=== PATIENT | female | born 1935 | race Caucasian/White ===

== ENCOUNTER 2024-01-28 13:37 | Inpatient (IN) | payer OTHER ==
[~2024-01-28] VITALS: Ht 165.1 cm; Wt 52.2 kg
[2024-01-28 14:01] VITALS: BP 166/87; PULSE 70; RESP 15; TEMP 97.3; O2SAT 96
[2024-01-28 14:13] LABS: BASOPHILS % (AUTO) 0.4 % (0.0-2.0); EOSINOPHILS # (AUTO) 0.2 K/uL (0-0.4); EOSINOPHILS % (AUTO) 3.2 % (0.0-4.0); HEMATOCRIT 34.7 % (36-48); HEMOGLOBIN 10.8 g/dL (12.0-16.0); LYMPHOCYTES # (AUTO) 1.6 K/uL (2.5-16.5); LYMPHOCYTES % (AUTO) 32.1 % (20.5-51.1); MEAN CORPUSCULAR HEMOGLOBIN 23 pg (27-31); MEAN CORPUSCULAR HGB CONC 31 g/dL (33-37); MEAN CORPUSCULAR VOLUME 72.2 fL (80-94); MONOCYTES # (AUTO) 0.3 K/uL (0.8-1.0); MONOCYTES % (AUTO) 6.7 % (1.7-9.3); NEUTROPHILS # (AUTO) 2.8 K/uL (1.8-7.7); NEUTROPHILS % (AUTO) 57.6 % (42.2-75.2); PLATELET COUNT (AUTO) 360 K/uL (140-450); WHITE BLOOD COUNT (AUTO) 4.9 K/uL (4.8-10.8)
[2024-01-28 14:49] LABS: LACTIC ACID 1.5 mmol/L (0.4-2.0)
[2024-01-28 14:53] LABS: ALANINE AMINOTRANSFERASE 34 U/L (12-78); ALBUMIN 2.4 g/dL (3.4-5.0); ALKALINE PHOSPHATASE 425 U/L (50-136); ASPARTATE AMINOTRANSFERASE 46 U/L (15-37); BILIRUBIN,DIRECT 0.6 mg/dL (0.0-0.3); CREATINE KINASE, TOTAL 34 U/L (26-192); LIPASE 22 U/L (16-77); TOTAL PROTEIN, SERUM 7.3 g/dL (6.4-8.2)
[2024-01-28 14:57] LABS: ANION GAP 10.5 (8-16); CALCIUM 8.4 mg/dL (8.5-10.1); CARBON DIOXIDE 27.8 mmol/L (21-32); CHLORIDE 103 mmol/L (98-107); CREATININE 0.8 mg/dL (0.6-1.3); GLUCOSE 117 mg/dL (74-106); POTASSIUM 3.3 mmol/L (3.5-5.1); SODIUM SERUM 138 mmol/L (136-145); UREA NITROGEN, BLOOD 14 mg/dL (7-18)
[2024-01-28] MEDS ORDERED: cefTRIAXone 1,000 MG VIAL ONE (15:57)
[2024-01-28] MEDS ORDERED: ONDANSETRON 4 MG/2 ML VIAL IVP PRN ×2 (16:25→21:25)
[2024-01-28] MEDS ORDERED: LORazepam 1 MG TAB PO PRN ×2 (16:25→21:25)
[2024-01-28] MEDS ORDERED: ZOLPIDEM 5 MG TAB PO PRN (16:25)
[2024-01-28 16:31] LABS: APPEARANCE,URINE SLIGHTLY HAZY (CLEAR); BILIRUBIN,URINE NEGATIVE (NEGATIVE); BLOOD, URINE NEGATIVE (NEGATIVE); COLOR,URINE YELLOW (YELLOW); LEUKOCYTE ESTERASE ,URINE 3+ (NEGATIVE); NITRITE, URINE NEGATIVE (NEGATIVE); PH,URINE 7.5 (5.0-9.0); PROTEIN,URINE TRACE (NEGATIVE); UGLUCOSE NEGATIVE (NEGATIVE)
[2024-01-28 16:32] LABS: BACTERIA,URINE 2+ /HPF (None Seen); RBC,URINE 0 /HPF (0-5); SQUAMOUS EPITHELIAL CELL,UR 0-3 (FEW) /LPF (0-3 (FEW))
[2024-01-28 16:33] LABS: MUCUS,URINE None Seen /LPF (None Seen)
[2024-01-28] MEDS ORDERED: CLINICAL MONITORING MC PRN (18:30)
[2024-01-28] MEDS ORDERED: ALEN70TA85 PO (19:03)
[2024-01-28] MEDS ORDERED: OMEP40EC23 PO (19:03)
[2024-01-28] MEDS ORDERED: MIRT7.5T14 PO (19:03)
[2024-01-28] MEDS ORDERED: ALBU3SOL83 NEB (19:03)
[2024-01-28] MEDS ORDERED: ATOR40TA40 PO (19:03)
[2024-01-28] MEDS ORDERED: MEGE400O15 PO (19:03)
[2024-01-28] MEDS ORDERED: AMPICILLIN/SULBACTAM 3 GM VIAL ONE (19:42)
[2024-01-28] MEDS: AMPICILLIN/SULBACTAM 3 GM in NACL 0.9% 100 ML IV SCH (19:48)
[2024-01-28] MEDS: lisinopriL 10 MG TAB PO SCH (20:04)
[2024-01-28 20:30] VITALS: PULSE 77; RESP 16; O2SAT 98
[2024-01-28] MEDS ORDERED: MAG SULF 2000 MG/WATER PREMIX 50 ML IV PRN (21:25)
[2024-01-28] MEDS ORDERED: ACETAMINOPHEN 325 MG TAB PO PRN (21:25)
[2024-01-28] MEDS ORDERED: ZOLPIDEM 10 MG TAB PO PRN (21:25)
[2024-01-28] MEDS: AMPICILLIN/SULBACTAM 3 GM VIAL ONE (23:13)
[2024-01-28 23:30] VITALS: PULSE 73; RESP 18; O2SAT 99
[2024-01-29] VITALS: BP 145/68; PULSE 70; PULSE 76; RESP 26; TEMP 98.2; O2SAT 99
[2024-01-29 04:00] VITALS: BP 126/83; PULSE 73; RESP 18; TEMP 97.3; O2SAT 99
[2024-01-29] MEDS: AMPICILLIN/SULBACTAM 3 GM VIAL ONE (07:01)
[2024-01-29 07:09] LABS: EOSINOPHILS # (AUTO) 0.1 K/uL (0-0.4); EOSINOPHILS % (AUTO) 3.3 % (0.0-4.0); HEMATOCRIT 31.9 % (36-48); HEMOGLOBIN 10.3 g/dL (12.0-16.0); LYMPHOCYTES # (AUTO) 1.7 K/uL (2.5-16.5); LYMPHOCYTES % (AUTO) 44.6 % (20.5-51.1); MEAN CORPUSCULAR HEMOGLOBIN 23 pg (27-31); MEAN CORPUSCULAR HGB CONC 32 g/dL (33-37); MEAN CORPUSCULAR VOLUME 70.9 fL (80-94); MONOCYTES # (AUTO) 0.3 K/uL (0.8-1.0); MONOCYTES % (AUTO) 8.1 % (1.7-9.3); NEUTROPHILS # (AUTO) 1.6 K/uL (1.8-7.7); PLATELET COUNT (AUTO) 305 K/uL (140-450); RED CELL DISTRIBUTION WIDTH 19.2 % (11.6-13.7); WHITE BLOOD COUNT (AUTO) 3.7 K/uL (4.8-10.8)
[2024-01-29 07:15] LABS: ALANINE AMINOTRANSFERASE 27 U/L (12-78); ALBUMIN 2.1 g/dL (3.4-5.0); ALKALINE PHOSPHATASE 370 U/L (50-136); ANION GAP 11.1 (8-16); ASPARTATE AMINOTRANSFERASE 32 U/L (15-37); CALCIUM 8.2 mg/dL (8.5-10.1); CARBON DIOXIDE 25.5 mmol/L (21-32); CHLORIDE 106 mmol/L (98-107); CREATININE 0.7 mg/dL (0.6-1.3); GLUCOSE 102 mg/dL (74-106); POTASSIUM 3.6 mmol/L (3.5-5.1); SODIUM SERUM 139 mmol/L (136-145); TOTAL BILIRUBIN 0.8 mg/dL (0.0-1.0); TOTAL PROTEIN, SERUM 6.8 g/dL (6.4-8.2); UREA NITROGEN, BLOOD 13 mg/dL (7-18)
[2024-01-29 08:00] VITALS: BP 231/109; PULSE 68; RESP 18; O2SAT 96
[2024-01-29] MEDS: PANTOPRAZOLE 40 MG INJ VIAL IVP SCH (08:21)
[2024-01-29] MEDS: hydrALAZINE 20 MG/ML VIAL IVP PRN (08:22)
[2024-01-29] MEDS: DOCUSATE SODIUM 100 MG GELCAP PO SCH (08:22)
[2024-01-29] MEDS: amLODIPine 5 MG TAB PO SCH (09:35)
[2024-01-29] MEDS: lisinopriL 20 MG TAB PO SCH (09:35)
[2024-01-29 11:06] LABS: FREE T4 (FREE THYROXINE) 1.23 ng/dL (0.76-1.46); THYROID STIMULATING HORMONE 1.16 uIU/mL (0.34-3.74)
[2024-01-29 12:00] VITALS: BP 150/60; PULSE 68; PULSE 74; PULSE 90; RESP 18; TEMP 97.5; O2SAT 96
[2024-01-29 16:00] VITALS: BP 148/62; PULSE 70; PULSE 75; PULSE 90; RESP 18; TEMP 97.6; O2SAT 98
[2024-01-29 20:00] VITALS: BP 156/76; PULSE 84; PULSE 88; RESP 18; TEMP 98.4; O2SAT 96
[2024-01-29] MEDS: METOPROLOL 25 MG TAB PO SCH (20:52)
[2024-01-29] MEDS: MIRTAZAPINE 15 MG TAB PO SCH (20:52)
[2024-01-30] VITALS: BP 144/71; PULSE 66; PULSE 70; PULSE 74; RESP 18; TEMP 97.9; O2SAT 98
[2024-01-30 04:00] VITALS: BP 151/84; PULSE 64; PULSE 75; RESP 18; TEMP 97.2; O2SAT 96
[2024-01-30 07:12] LABS: BASOPHILS # (AUTO) 0.1 K/uL (0.00-0.22); BASOPHILS % (AUTO) 1.8 % (0.0-2.0); EOSINOPHILS # (AUTO) 0.1 K/uL (0-0.4); EOSINOPHILS % (AUTO) 2.4 % (0.0-4.0); HEMOGLOBIN 10.2 g/dL (12.0-16.0); LYMPHOCYTES # (AUTO) 2.1 K/uL (2.5-16.5); LYMPHOCYTES % (AUTO) 44.3 % (20.5-51.1); MEAN CORPUSCULAR HEMOGLOBIN 23 pg (27-31); MEAN CORPUSCULAR HGB CONC 32 g/dL (33-37); MONOCYTES # (AUTO) 0.5 K/uL (0.8-1.0); MONOCYTES % (AUTO) 9.8 % (1.7-9.3); NEUTROPHILS # (AUTO) 1.9 K/uL (1.8-7.7); NEUTROPHILS % (AUTO) 41.7 % (42.2-75.2); PLATELET COUNT (AUTO) 316 K/uL (140-450); RED BLOOD CELL COUNT(AUTO) 4.51 MIL/uL (4.20-5.40); RED CELL DISTRIBUTION WIDTH 19.6 % (11.6-13.7); WHITE BLOOD COUNT (AUTO) 4.7 K/uL (4.8-10.8)
[2024-01-30 07:35] LABS: ANION GAP 12.8 (8-16); CALCIUM 8.3 mg/dL (8.5-10.1); CARBON DIOXIDE 24.6 mmol/L (21-32); CHLORIDE 108 mmol/L (98-107); CREATININE 1.1 mg/dL (0.6-1.3); GLUCOSE 90 mg/dL (74-106); POTASSIUM 3.4 mmol/L (3.5-5.1); SODIUM SERUM 142 mmol/L (136-145); UREA NITROGEN, BLOOD 19 mg/dL (7-18)
[2024-01-30 08:00] VITALS: BP 145/83; PULSE 72; PULSE 78; RESP 16; RESP 18; TEMP 97.7; O2SAT 96; O2SAT 99
[2024-01-30] MEDS: POTASSIUM CHLORIDE 10 MEQ TABER PO PRN (09:18)
[2024-01-30] MEDS: MUPIROCIN CA NASAL 2% 1GM TUBE NS SCH (11:01)
[2024-01-30] MEDS: CHLORHEXADINE GLUC 2% CLOTH TP SCH (11:01)
[2024-01-30 12:00] VITALS: BP 107/54; PULSE 51; PULSE 61; RESP 16; TEMP 96.9; O2SAT 99
[2024-01-30 16:00] VITALS: BP 133/63; PULSE 65; PULSE 68; RESP 16; TEMP 97.7; O2SAT 96
[2024-01-30 20:00] VITALS: BP 102/76; PULSE 74; PULSE 86; RESP 17; TEMP 97.6; O2SAT 96; O2SAT 99
[2024-01-30] MEDS: ATORVASTATIN 20 MG TAB PO SCH (21:00)
[2024-01-31] VITALS: BP 129/59; PULSE 73; PULSE 77; RESP 18; TEMP 98.1; O2SAT 96
[2024-01-31 04:00] VITALS: BP 131/63; PULSE 69; PULSE 77; RESP 18; TEMP 97.3; O2SAT 97
[2024-01-31 07:11] LABS: BASOPHILS # (AUTO) 0.1 K/uL (0.00-0.22); BASOPHILS % (AUTO) 1.6 % (0.0-2.0); EOSINOPHILS % (AUTO) 0.8 % (0.0-4.0); HEMATOCRIT 30.4 % (36-48); HEMOGLOBIN 9.6 g/dL (12.0-16.0); LYMPHOCYTES # (AUTO) 1.7 K/uL (2.5-16.5); LYMPHOCYTES % (AUTO) 27.9 % (20.5-51.1); MEAN CORPUSCULAR HEMOGLOBIN 23 pg (27-31); MEAN CORPUSCULAR HGB CONC 32 g/dL (33-37); MEAN CORPUSCULAR VOLUME 71.2 fL (80-94); MONOCYTES # (AUTO) 0.6 K/uL (0.8-1.0); MONOCYTES % (AUTO) 9.8 % (1.7-9.3); NEUTROPHILS # (AUTO) 3.6 K/uL (1.8-7.7); NEUTROPHILS % (AUTO) 59.9 % (42.2-75.2); PLATELET COUNT (AUTO) 274 K/uL (140-450); RED BLOOD CELL COUNT(AUTO) 4.26 MIL/uL (4.20-5.40); RED CELL DISTRIBUTION WIDTH 19.9 % (11.6-13.7)
[2024-01-31 07:35] LABS: CARBON DIOXIDE 24.6 mmol/L (21-32); CHLORIDE 109 mmol/L (98-107); CREATININE 0.9 mg/dL (0.6-1.3); GLUCOSE 96 mg/dL (74-106); POTASSIUM 3.6 mmol/L (3.5-5.1); SODIUM SERUM 143 mmol/L (136-145); UREA NITROGEN, BLOOD 16 mg/dL (7-18)
[2024-01-31] MEDS ORDERED: POTASSIUM CHLORIDE 20% 40 MEQ/15 ML UDC PO PRN (07:40)
[2024-01-31 08:00] VITALS: BP 99/63; PULSE 69; PULSE 77; RESP 18; TEMP 97.9; O2SAT 98
[2024-01-31] MEDS ORDERED: METO25TA PO (09:59)
[2024-01-31] MEDS ORDERED: LISI20TA29 PO (09:59)
[2024-01-31] MEDS ORDERED: CIPR500T4 PO (09:59)
[2024-01-31] MEDS ORDERED: AMLO-3 PO (09:59)
[2024-01-31] MEDS: MEGESTROL 400 MG/10 ML UDC PO SCH (10:03)
[2024-01-31 10:48] VITALS: RESP 18
[2024-01-31 12:00] VITALS: BP 131/58; PULSE 81; PULSE 90; RESP 18; TEMP 97.8; O2SAT 98
[2024-01-31 12:58] VITALS: BP 131/58; PULSE 90; RESP 18; TEMP 97.8
== END 2024-01-31 15:20 | DRG 871 ==
LOC: MED 13:37 → MMU 16:26 → UNDOADMIN 16:26 → MTU 20:44 → MMU 20:44 → MTU 21:22
PROVIDERS: ADMIT Family Medicine; ATTEND Family Medicine
DX: A41.9 Sepsis, unspecified organism (principal); E43 Unspecified severe protein-calorie malnutrition; J15.69 Pneumonia due to other Gram-negative bacteria; J15.9 Unspecified bacterial pneumonia; N39.0 Urinary tract infection, site not specified; I16.9 Hypertensive crisis, unspecified; Z68.1 Body mass index [BMI] 19.9 or less, adult; F03.90 Unspecified dementia, unspecified severity, without behavioral disturbance, psychotic disturbance, mood disturbance, and anxiety; I10 Essential (primary) hypertension; I48.91 Unspecified atrial fibrillation; K21.9 Gastro-esophageal reflux disease without esophagitis; Z86.73 Personal history of transient ischemic attack (TIA), and cerebral infarction without residual deficits; Z79.899 Other long term (current) drug therapy
CPT/HCPCS: 36415; 71045; 80048; 80053; 80076; 81001; 82550; 83605; 83690; 83880; 84439; 84443; 84484; 85025; 87040; 87081; 87086; 87186; 93005; 96365; 96375; 97110; 97163-GP; 97530; 99285; J0295; J0360; J0696; J1644; J2470